=== PATIENT | male | born 1990 | race Caucasian/White ===

== ENCOUNTER 2021-09-20 22:07 | Emergency (ER) | payer BC, OTHER ==
[~2021-09-20] VITALS: Ht 170.2 cm; Wt 83.9 kg
[2021-09-20 23:00] VITALS: BP 163/102
[2021-09-20] MEDS ORDERED: LORAZEPAM 1 MG TABLET ONE (23:38)
[2021-09-21] MEDS ORDERED: LORAZEPAM 1 MG TABLET PO ONE
[2021-09-21] MEDS ORDERED: CHLO25CA22 PO (00:29)
[2021-09-21] MEDS ORDERED: GUAI400T61 PO (00:31)
[2021-09-21] MEDS ORDERED: CHLORDIAZEPOXIDE HCL 25 MG CAPSULE ONE (00:42)
--- NOTE | 2021-09-21 00:45 | NUR ---
Patient discharged to home in stable condition. Written and verbal after care instructions given. Patient verbalizes understanding of instruction. Pt ambulatory with a steady gait
[2021-09-21] MEDS ORDERED: CHLORDIAZEPOXIDE HCL 25 MG CAPSULE PO ONE (01:00)
== END 2021-09-21 00:47 | disposition home or self-care (01) ==
LOC: ER 22:15
DX: F10.10 Alcohol abuse, uncomplicated (principal); B34.9 Viral infection, unspecified; Y90.9 Presence of alcohol in blood, level not specified
CPT/HCPCS: 71045-TC

== ENCOUNTER 2021-11-01 14:10 | Emergency (ER) | payer BC ==
[~2021-11-01] VITALS: Ht 170.2 cm; Wt 81.6 kg
[~2021-11-01 14:10] MED LIST: GUAI400T61 PO
[2021-11-01 15:41] VITALS: BP 120/79
--- NOTE | 2021-11-01 16:14 | NUR ---
RN CARDIAC REHAB AT BEDSIDE
[2021-11-01] MEDS ORDERED: IBUP-1955 PO (17:02)
--- NOTE | 2021-11-01 17:23 | NUR ---
Patient discharged to home in stable condition. Written and verbal after care instructions given. Patient verbalizes understanding of instruction.
== END 2021-11-01 17:23 | disposition home or self-care (01) ==
LOC: ER 14:14
DX: S16.1XXA Strain of muscle, fascia and tendon at neck level, initial encounter (principal); M25.511 Pain in right shoulder; Z79.1 Long term (current) use of non-steroidal anti-inflammatories (NSAID); V43.52XA Car driver injured in collision with other type car in traffic accident, initial encounter; Y93.89 Activity, other specified; Y92.89 Other specified places as the place of occurrence of the external cause; Y99.8 Other external cause status
CPT/HCPCS: 71045-TC